=== PATIENT | male | born 1985 | race Caucasian/White ===

== ENCOUNTER 2021-02-11 21:39 | Emergency (ER) | payer OTHER ==
[~2021-02-11 21:39] MED LIST: BACTROBAN CREAM15 GM TOP; NAPROSYN500 MG PO
[2021-04-20] MEDS ORDERED: VRAYLAR1.5 MG PO (09:24)
[2021-04-22] MEDS ORDERED: CIPRO500 MG PO (11:28)
== END 2021-02-12 05:45 | disposition left against medical advice (07) ==
LOC: ER1 21:39
DX: N50.812 Left testicular pain (principal); F17.210 Nicotine dependence, cigarettes, uncomplicated
CPT/HCPCS: 81001; 99284

== ENCOUNTER → 2021-03-03 | Outpatient (CLI) | payer OTHER ==
[~2021-03-03] MED LIST changes: +CIPRO500 MG PO; +VRAYLAR1.5 MG PO
== END ==
LOC: KOH-I 14:46
DX: M21.611 Bunion of right foot (principal); M21.612 Bunion of left foot
CPT/HCPCS: 73630

== ENCOUNTER → 2021-04-20 | Outpatient (CLI) | payer OTHER ==
[2021-04-20 09:39] LABS: HEMOGLOBIN 14.7 gm/dl (14.0-17.5); WHITE BLOOD COUNT 8.9 K/UL (4.5-11.0)
[2021-04-20 10:04] LABS: BUN/CREATININE RATIO 12 (0-10)
== END ==
LOC: OPSV2 04-14 12:30
PROVIDERS: Podiatrist Foot & Ankle Surgery
DX: Z01.812 Encounter for preprocedural laboratory examination (principal); M21.611 Bunion of right foot
CPT/HCPCS: 36415; 80048; 85027

== ENCOUNTER → 2021-04-22 | Day surgery (SDC) | payer OTHER ==
[~2021-04-22] VITALS: Ht 188 cm; Wt 88.9 kg
== END | disposition home or self-care (01) ==
LOC: OR 09:16
DX: M21.41 Flat foot [pes planus] (acquired), right foot (principal); M20.41 Other hammer toe(s) (acquired), right foot; M25.371 Other instability, right ankle; M21.861 Other specified acquired deformities of right lower leg; G89.29 Other chronic pain; I10 Essential (primary) hypertension; F31.9 Bipolar disorder, unspecified; F17.210 Nicotine dependence, cigarettes, uncomplicated
CPT/HCPCS: 0335T; 27687; 28297; 73630; 76000; C1713; C1762; C1776; J0690; J1100; J1170; J1885; J2001; J2250; J2405; J2704; J2795; J3010; J3370; J7120; Q4133

== ENCOUNTER → 2021-04-26 | Outpatient (CLI) | payer OTHER | LOC: KOH-I 09:12 | DX: M21.611 Bunion of right foot (principal); M79.671 Pain in right foot | CPT/HCPCS: 73630 ==

== ENCOUNTER → 2021-05-17 | Outpatient (CLI) | payer OTHER | LOC: KOH-I 15:31 | DX: M79.671 Pain in right foot (principal); M85.871 Other specified disorders of bone density and structure, right ankle and foot | CPT/HCPCS: 73630 ==

== ENCOUNTER → 2021-05-31 | Outpatient (CLI) | payer OTHER | LOC: KOH-I 15:30 | DX: M79.671 Pain in right foot (principal) | CPT/HCPCS: 73630 ==

== ENCOUNTER → 2021-06-21 | Outpatient (CLI) | payer OTHER | LOC: KOH-I 16:24 | DX: M79.671 Pain in right foot (principal); Z98.1 Arthrodesis status | CPT/HCPCS: 73630 ==

== ENCOUNTER → 2021-07-05 | Outpatient (CLI) | payer OTHER | LOC: KOH-I 15:49 | DX: M79.671 Pain in right foot (principal); M85.871 Other specified disorders of bone density and structure, right ankle and foot | CPT/HCPCS: 73630 ==

== ENCOUNTER → 2021-12-06 | Outpatient (CLI) | payer OTHER | LOC: KOH-I 15:29 | DX: M79.671 Pain in right foot (principal); M20.11 Hallux valgus (acquired), right foot | CPT/HCPCS: 73630 ==

== ENCOUNTER → 2021-12-20 | Outpatient (CLI) | payer OTHER | LOC: KOH-I 12-15 08:00 | DX: T84.9XXA Unspecified complication of internal orthopedic prosthetic device, implant and graft, initial encounter (principal); Z98.1 Arthrodesis status; Z98.890 Other specified postprocedural states | CPT/HCPCS: 73700 ==

== ENCOUNTER → 2022-01-23 | Outpatient (CLI) | payer OTHER | LOC: KOH-I 14:36 | DX: M79.671 Pain in right foot (principal) | CPT/HCPCS: 73630 ==

== ENCOUNTER → 2022-02-06 | Outpatient (CLI) | payer OTHER | LOC: KOH-I 15:24 | DX: S92.311A Displaced fracture of first metatarsal bone, right foot, initial encounter for closed fracture (principal); X58.XXXA Exposure to other specified factors, initial encounter | CPT/HCPCS: 73630 ==

== ENCOUNTER 2022-02-13 20:30 | Emergency (ER) | payer OTHER | END 2022-02-14 00:03 | disposition left against medical advice (07) | LOC: ER1 20:30 | DX: Z53.21 Procedure and treatment not carried out due to patient leaving prior to being seen by health care provider (principal) ==

== ENCOUNTER 2022-02-16 21:50 | Emergency (ER) | payer OTHER | END 2022-02-17 02:06 | disposition home or self-care (01) | LOC: ER1 21:50 | DX: Z47.89 Encounter for other orthopedic aftercare (principal) | CPT/HCPCS: 29515; 99282 ==

== ENCOUNTER → 2022-02-20 | Outpatient (CLI) | payer OTHER | LOC: KOH-I 16:03 | DX: S92.901A Unspecified fracture of right foot, initial encounter for closed fracture (principal); X58.XXXA Exposure to other specified factors, initial encounter | CPT/HCPCS: 73630 ==

== ENCOUNTER → 2022-03-07 | Outpatient (CLI) | payer OTHER | LOC: KOH-I 15:17 | DX: S92.901D Unspecified fracture of right foot, subsequent encounter for fracture with routine healing (principal) | CPT/HCPCS: 73630 ==

== ENCOUNTER → 2022-03-28 | Outpatient (CLI) | payer OTHER | LOC: KOH-I 14:53 | DX: M79.671 Pain in right foot (principal); Z98.890 Other specified postprocedural states | CPT/HCPCS: 73630 ==

== ENCOUNTER → 2022-05-09 | Outpatient (CLI) | payer OTHER | LOC: KOH-I 15:13 | DX: M79.671 Pain in right foot (principal); S92.901P Unspecified fracture of right foot, subsequent encounter for fracture with malunion; Z98.890 Other specified postprocedural states | CPT/HCPCS: 73630 ==

== ENCOUNTER → 2022-06-08 | Outpatient (CLI) | payer OTHER | LOC: KOH-I 15:39 | DX: M79.671 Pain in right foot (principal) | CPT/HCPCS: 73630 ==

== ENCOUNTER → 2022-07-11 | Outpatient (CLI) | payer OTHER | LOC: KOH-I 14:17 | DX: S92.901A Unspecified fracture of right foot, initial encounter for closed fracture (principal); Z98.890 Other specified postprocedural states | CPT/HCPCS: 73630 ==